=== PATIENT | female | born 1970 | race Asian ===

== ENCOUNTER → 2019-02-21 | Outpatient (CLI) | payer BC, OTHER ==
[~2019-02-21] MED LIST: CHOL500015 PO; CYAN25009 PO; LISI1TAB3 PO; OMNIPAQUE 350 MG/ML, 75ML BOTTLE ONE
== END | disposition home or self-care (01) ==
LOC: RAD 10:03
PROVIDERS: ATTEND Surgery
DX: J84.10 Pulmonary fibrosis, unspecified (principal); J98.4 Other disorders of lung; C18.6 Malignant neoplasm of descending colon
CPT/HCPCS: 71260; Q9967

== ENCOUNTER → 2019-02-21 | Outpatient (CLI) | payer BC, OTHER ==
[~2019-02-21] MED LIST changes: -OMNIPAQUE 350 MG/ML, 75ML BOTTLE ONE
[2019-02-21 11:27] LABS: BASOPHILS # (AUTO) 0.02 x10^3/uL (0-0.1); BASOPHILS % (AUTO) 1 % (0-1); EOSINOPHILS # (AUTO) 0.04 x10^3/uL (0-0.4); EOSINOPHILS % (AUTO) 1 % (1-7); LYMPHOCYTES # (AUTO) 2.02 x10^3/uL (1-3.4); LYMPHOCYTES % (AUTO) 45 % (22-44); MD NO; MEAN CORPUSCULAR HEMOGLOBIN 31.7 pg (27.0-34.8); MEAN CORPUSCULAR HGB CONC 34.6 g/dL (32.4-35.8); MEAN CORPUSCULAR VOLUME 91.8 fL (80-100); MEAN PLATELET VOLUME 8.1 fL (7.4-10.4); MONOCYTES # (AUTO) 0.27 x10^3/uL (0.2-0.8); MONOCYTES % (AUTO) 6 % (2-9); NEUTROPHILS # (AUTO) 2.12 x10^3/uL (1.8-6.8); NEUTROPHILS % (AUTO) 47 % (42-75); PLATELET COUNT 302 x10^3/uL (130-400); RED BLOOD COUNT 4.57 x10^6/uL (3.82-5.3); RED CELL DISTRIBUTION WIDTH 13.2 % (9.6-15.2)
[2019-02-21 11:33] LABS: ALBUMIN 3.8 g/dL (3.4-5.0); ANION GAP 5 mmol/L (5-15); CALCIUM 9.7 mg/dL (8.5-10.1); CHLORIDE 106 mmol/L (98-107)
[2019-02-21 11:36] LABS: ALANINE AMINOTRANSFERASE 40 U/L (12-78); ALKALINE PHOSPHATASE 80 U/L (45-117); BILIRUBIN,TOTAL 0.3 mg/dL (0.2-1.0); CREATININE 0.81 mg/dL (0.55-1.02); TOTAL PROTEIN 7.6 g/dL (6.4-8.2)
== END | disposition home or self-care (01) ==
LOC: STAR 10:01
PROVIDERS: ATTEND Surgery
DX: Z01.818 Encounter for other preprocedural examination (principal)
CPT/HCPCS: 36415; 80053; 85025; 93005

== ENCOUNTER 2019-03-01 07:01 | Inpatient (IN) | payer BC, OTHER ==
[~2019-03-01] VITALS: Ht 165.1 cm; Wt 71.5 kg
[2019-03-01] MEDS ORDERED: LACTATED RINGERS 1,000 ML IV SCH (07:25)
[2019-03-01] MEDS ORDERED: LIDOCAINE-MPF 1%, 2ML ONE (07:43)
[2019-03-01] MEDS ORDERED: MIDAZOLAM 1 MG/ML, 2ML ONE (07:53)
[2019-03-01] MEDS ORDERED: FENTANYL PF 100 MCG/2ML ONE ×3 (07:53→11:47)
[2019-03-01 08:07] LABS: HCG UR SG 1.011 (1.003-1.030)
[2019-03-01] MEDS ORDERED: INDOCYANINE GREEN 25 MG VIAL ONE (08:14)
[2019-03-01] MEDS ORDERED: BUPIVACAINE/PF 0.5% ONE (08:14)
[2019-03-01] MEDS ORDERED: LIDOCAINE-MPF 1%, 2ML INFIL ONE (08:30)
[2019-03-01] MEDS ORDERED: NEOSTIGMINE 1 MG/ML, 10ML ONE (09:10)
[2019-03-01] MEDS ORDERED: PROPOFOL 10 MG/ML, 20ML ONE (09:10)
[2019-03-01] MEDS ORDERED: ONDANSETRON 2MG/ML, 2ML ONE (09:10)
[2019-03-01] MEDS ORDERED: SUCCINYLCHOLINE 20 MG/ML, 10ML ONE (09:10)
[2019-03-01] MEDS ORDERED: CEFOTETAN 2 GM ONE (09:10)
[2019-03-01] MEDS ORDERED: DEXAMETHASONE 4 MG/ML, 1ML ONE (09:10)
[2019-03-01] MEDS ORDERED: ROCURONIUM 10 MG/ML,10ML ONE (09:10)
[2019-03-01] MEDS ORDERED: GLYCOPYRROLATE 0.2MG/1ML, 5ML ONE (09:10)
[2019-03-01] MEDS ORDERED: HYDROmorphone 2 MG/ML, 1ML IVPush PRN (10:30)
[2019-03-01] MEDS ORDERED: DIPHENHYDRAMINE 50 MG/ML, 1ML IVPush PRN ×2 (10:30→11:30)
[2019-03-01] MEDS ORDERED: LABETALOL 5MG/ML, 20ML IV PRN (10:30)
[2019-03-01] MEDS ORDERED: MEPERIDINE/PF 25MG/0.5ML IVPush PRN (10:30)
[2019-03-01] MEDS ORDERED: PROCHLORPERAZINE 5 MG/ML, 2ML IV PRN (10:30)
[2019-03-01] MEDS ORDERED: LORazepam 2 MG/ML, 1ML IVPush PRN ×2 (10:30→11:30)
[2019-03-01] MEDS ORDERED: hydrALAzine 20 MG/ML, 1ML IV PRN (10:30)
[2019-03-01] MEDS ORDERED: HALOPERIDOL 5 MG/ML IVPush PRN (11:30)
[2019-03-01] MEDS ORDERED: DEXAMETHASONE 4 MG/ML, 1ML IVPush PRN (11:30)
[2019-03-01] MEDS ORDERED: HYDROmorphone 1 MG/ML, 1ML INJ IVPush PRN (11:30)
[2019-03-01] MEDS ORDERED: DIPHENHYDRAMINE 25 MG CAPSULE PO PRN (11:30)
[2019-03-01] MEDS ORDERED: CALCIUM CARBONATE 500 MG TAB.CHEW PO PRN (11:30)
[2019-03-01] MEDS ORDERED: SCOPOLAMINE PATCH, 1.5MG PATCH.TD72 TD PRN (11:30)
[2019-03-01] MEDS ORDERED: OXYcodone 5 MG/5 ML ORAL.SOL UDC ONE ×2 (11:47→13:15)
[2019-03-01] MEDS: OXYcodone 5 MG/5 ML ORAL.SOL UDC PO PRN ×2 (11:50→13:15)
[2019-03-01] MEDS: FENTANYL PF 100 MCG/2ML IV PRN ×4 (11:50→13:10)
[2019-03-01] MEDS ORDERED: D5%-0.45NACL+KCL 20MEQ 1,000 ML IV SCH (13:42)
[2019-03-01] MEDS: ONDANSETRON 2MG/ML, 2ML IVPush PRN ×2 (14:18→20:21)
[2019-03-01] MEDS: OXYcodone IR 5MG TABLET PO PRN ×3 (14:18→23:07)
[2019-03-01 15:18] VITALS: BP 167/108
[2019-03-01] MEDS: IBUPROFEN 800 MG TABLET PO SCH ×2 (16:03→22:35)
[2019-03-01 20:04] VITALS: BP 158/101
[2019-03-01 20:39] VITALS: BP 138/89
[2019-03-01] MEDS ORDERED: LABETALOL 5MG/ML, 20ML IVPush ONE (21:00)
[2019-03-01] MEDS ORDERED: ENOXAPARIN 40 MG/0.4 ML SQ SCH (22:00)
[2019-03-02 00:07] VITALS: BP 118/81
[2019-03-02 03:46] LABS: BASOPHILS # (AUTO) 0.02 x10^3/uL (0-0.1); BASOPHILS % (AUTO) 0 % (0-1); EOSINOPHILS % (AUTO) 0 % (1-7); LYMPHOCYTES # (AUTO) 1.05 x10^3/uL (1-3.4); LYMPHOCYTES % (AUTO) 10 % (22-44); MD NO; MEAN CORPUSCULAR HEMOGLOBIN 31.6 pg (27.0-34.8); MEAN CORPUSCULAR HGB CONC 34.1 g/dL (32.4-35.8); MEAN CORPUSCULAR VOLUME 92.6 fL (80-100); MEAN PLATELET VOLUME 8.1 fL (7.4-10.4); MONOCYTES # (AUTO) 0.48 x10^3/uL (0.2-0.8); MONOCYTES % (AUTO) 5 % (2-9); NEUTROPHILS # (AUTO) 8.87 x10^3/uL (1.8-6.8); NEUTROPHILS % (AUTO) 85 % (42-75); PLATELET COUNT 301 x10^3/uL (130-400); RED BLOOD COUNT 4.26 x10^6/uL (3.82-5.3); RED CELL DISTRIBUTION WIDTH 12.6 % (9.6-15.2)
[2019-03-02 03:53] LABS: ANION GAP 9 mmol/L (5-15); CALCIUM 8.5 mg/dL (8.5-10.1); CHLORIDE 103 mmol/L (98-107); CREATININE 1.12 mg/dL (0.55-1.02)
[2019-03-02 04:24] VITALS: BP 94/61
[2019-03-02] MEDS ORDERED: LACTATED RINGERS 1,000 ML IVBOLUS ONE (06:30)
[2019-03-02 09:20] VITALS: BP 98/64
[2019-03-02] MEDS: IBUPROFEN 800 MG TABLET PO SCH ×3 (09:40→21:18)
[2019-03-02 13:45] VITALS: BP 90/60
[2019-03-02] MEDS ORDERED: ENOXAPARIN 40 MG/0.4 ML ONE (18:10)
[2019-03-02] MEDS ORDERED: ENOXAPARIN 40 MG/0.4 ML SQ SCH ×2 (18:30→22:00)
[2019-03-02 19:25] VITALS: BP 99/61
[2019-03-03 00:05] VITALS: BP 97/63
[2019-03-03 03:42] LABS: BASOPHILS # (AUTO) 0.04 x10^3/uL (0-0.1); BASOPHILS % (AUTO) 0 % (0-1); EOSINOPHILS # (AUTO) 0.02 x10^3/uL (0-0.4); EOSINOPHILS % (AUTO) 0 % (1-7); LYMPHOCYTES # (AUTO) 2.33 x10^3/uL (1-3.4); LYMPHOCYTES % (AUTO) 24 % (22-44); MD NO; MEAN CORPUSCULAR HEMOGLOBIN 31.9 pg (27.0-34.8); MEAN CORPUSCULAR HGB CONC 34.7 g/dL (32.4-35.8); MEAN CORPUSCULAR VOLUME 91.9 fL (80-100); MEAN PLATELET VOLUME 7.9 fL (7.4-10.4); MONOCYTES # (AUTO) 0.57 x10^3/uL (0.2-0.8); MONOCYTES % (AUTO) 6 % (2-9); NEUTROPHILS # (AUTO) 6.74 x10^3/uL (1.8-6.8); NEUTROPHILS % (AUTO) 70 % (42-75); PLATELET COUNT 247 x10^3/uL (130-400); RED BLOOD COUNT 3.63 x10^6/uL (3.82-5.3); RED CELL DISTRIBUTION WIDTH 12.8 % (9.6-15.2)
[2019-03-03 03:49] LABS: ANION GAP 6 mmol/L (5-15); CALCIUM 8.1 mg/dL (8.5-10.1); CHLORIDE 109 mmol/L (98-107); CREATININE 0.95 mg/dL (0.55-1.02)
[2019-03-03 08:28] VITALS: BP 112/76
[2019-03-03 12:10] LABS: BASOPHILS % (AUTO) 1 % (0-1); EOSINOPHILS # (AUTO) 0.05 x10^3/uL (0-0.4); EOSINOPHILS % (AUTO) 1 % (1-7); LYMPHOCYTES # (AUTO) 2.29 x10^3/uL (1-3.4); LYMPHOCYTES % (AUTO) 26 % (22-44); MD NO; MEAN CORPUSCULAR HEMOGLOBIN 31.7 pg (27.0-34.8); MEAN CORPUSCULAR HGB CONC 34.2 g/dL (32.4-35.8); MEAN CORPUSCULAR VOLUME 92.7 fL (80-100); MEAN PLATELET VOLUME 8.1 fL (7.4-10.4); MONOCYTES # (AUTO) 0.49 x10^3/uL (0.2-0.8); MONOCYTES % (AUTO) 6 % (2-9); NEUTROPHILS # (AUTO) 5.87 x10^3/uL (1.8-6.8); NEUTROPHILS % (AUTO) 67 % (42-75); PLATELET COUNT 269 x10^3/uL (130-400); RED BLOOD COUNT 3.63 x10^6/uL (3.82-5.3); RED CELL DISTRIBUTION WIDTH 13.4 % (9.6-15.2)
[2019-03-03 13:24] VITALS: BP 125/76
[2019-03-03] MEDS ORDERED: TRAM-47 PO (14:04)
[2019-03-03] MEDS ORDERED: ENOX40SY4 SQ (14:05)
[2019-03-03] MEDS ORDERED: ENOXAPARIN 40 MG/0.4 ML SQ SCH (22:00)
== END 2019-03-03 14:25 | disposition home or self-care (01) | DRG 331 ==
LOC: ORIP 07:01 → 4NOR 13:33 → DCLOUNGE 03-03 14:09
PROVIDERS: ADMIT Surgery; ATTEND Surgery
PROC: 8E0W4CZ Robotic Assisted Procedure of Trunk Region, Percutaneous Endoscopic Approach (ICD-10-PCS; 2019-03-01)
PROC: 3E0T3BZ Introduction of Anesthetic Agent into Peripheral Nerves and Plexi, Percutaneous Approach (ICD-10-PCS; 2019-03-01)
PROC: 0DTG4ZZ Resection of Left Large Intestine, Percutaneous Endoscopic Approach (ICD-10-PCS; principal; 2019-03-01 09:30)
DX: C18.6 Malignant neoplasm of descending colon (principal); I10 Essential (primary) hypertension; Z79.899 Other long term (current) drug therapy
CPT/HCPCS: 36415; J3490; 80048; 81025; 85025; 86850; 86900; 88305; 88309; G0378; J1100; J1650; J2250; J2405; J2704; J2710; J3010; J0330; J3480; J7120

== ENCOUNTER → 2019-04-10 | Outpatient (CLI) | payer BC ==
[~2019-04-10] MED LIST changes: +ENOX40SY4 SQ; +TRAM-47 PO
== END | disposition home or self-care (01) ==
LOC: RAD 08:14
PROVIDERS: ATTEND Internal Medicine Hematology & Oncology
DX: Z45.2 Encounter for adjustment and management of vascular access device (principal)
CPT/HCPCS: 36573; C1751

== ENCOUNTER → 2019-10-09 | Outpatient (CLI) | payer BC ==
[~2019-10-09] MED LIST changes: +LISI1TAB23 PO; -LISI1TAB3 PO; +OMNIPAQUE 350 MG/ML, 100ML BOTTLE ONE
== END | disposition home or self-care (01) ==
LOC: CFH 09:10
PROVIDERS: ATTEND Internal Medicine Hematology & Oncology
DX: C18.6 Malignant neoplasm of descending colon (principal); K83.1 Obstruction of bile duct; Z83.3 Family history of diabetes mellitus; Z82.49 Family history of ischemic heart disease and other diseases of the circulatory system
CPT/HCPCS: 71260; 74177; Q9967